=== PATIENT | female | born 1950 | race Caucasian/White ===

== ENCOUNTER 2017-11-10 18:52 | Emergency (ER) | payer MEDICARE, MEDICAID ==
[~2017-11-10] VITALS: Ht 172.7 cm; Wt 125.0 kg
[~2017-11-10 18:52] MED LIST: ALBU2TAB4 PO; ASPI-1071 PO; ATOR20TA PO; ATRNS; BUDE10.23 INH; FLUT10SP; HYDR-569 PO; HYDR12.522 PO; LEVA15HF4 IH; MELO-83 PO; MONT10TA21 PO; NIA500ERT PO; OMEG1CAP13 PO; ONDA4TAB12 PO; OXYC-145 PO; THEO300T11 PO; TRAM50TA2 PO
[2017-11-10 19:22] LABS: BASOPHILS # (AUTO) 0.1 X10'3 (0-0.2); BASOPHILS % (AUTO) 0.7 % (0-1); EOSINOPHILS # (AUTO) 0.4 X10'3 (0-0.9); HEMATOCRIT 42.9 % (35.0-45.0); HEMOGLOBIN 14.6 g/dl (12.0-16.0); LYMPHOCYTES # (AUTO) 3.9 X10'3 (1.1-4.8); LYMPHOCYTES % (AUTO) 20.5 % (21-51); MEAN CORPUSCULAR HEMOGLOBIN 29.5 PG (27.0-31.0); MEAN CORPUSCULAR HGB CONC 34.1 % (33.0-36.5); MEAN CORPUSCULAR VOLUME 86.4 FL (78-98); MEAN PLATELET VOLUME 7.6 FL (7.4-10.4); MONOCYTES % (AUTO) 10.4 % (2-12); NEUTROPHILS # (AUTO) 12.6 X10'3 (1.8-7.7); NEUTROPHILS % (AUTO) 66.4 % (42-75); PLATELET COUNT 313 X10'3 (140-440); RED BLOOD COUNT 4.97 X10'6 (4.20-5.60); RED CELL DISTRIBUTION WIDTH 14.4 % (11.5-14.5)
[2017-11-10 19:28] LABS: PARTIAL THROMBOPLASTIN TIME 29 SECONDS (22-32); PROTHROMBIN TIME 10.4 SECONDS (9.0-12.0)
[2017-11-10 19:36] LABS: ALANINE AMINOTRANSFERASE 25 U/L (12-78); ALBUMIN 3.4 G/DL (3.4-5.0); ALBUMIN/GLOBULIN RATIO 0.6 (1.1-1.5); ALKALINE PHOSPHATASE 77 IU/L (46-116); ANION GAP 11 (8-16); ASPARTATE AMINO TRANSFERASE 11 U/L (10-37); BILIRUBIN,TOTAL 0.9 MG/DL (0.1-1.0); BLOOD UREA NITROGEN 14 MG/DL (7-18); BUN/CREATININE RATIO 12.7 (6.6-38.0); CALCIUM 9.7 MG/DL (8.5-10.1); CHLORIDE 101 MMOL/L (99-107); GLUCOSE 150 MG/DL (70-104); POTASSIUM 3.7 MMOL/L (3.5-5.1); SODIUM 136 MMOL/L (135-145); TOTAL CARBON DIOXIDE 24.3 MMOL/L (24-32); TOTAL PROTEIN 8.7 G/DL (6.4-8.2); eGFR 50 ML/MIN
[2017-11-10] MEDS ORDERED: normal saline 1000ML IV soln IV ONE (19:55)
[2017-11-10] MEDS ORDERED: normal saline 1000ML IV soln IVB ONE (20:30)
[2017-11-10] MEDS ORDERED: normal saline 1000ml 1,000 ML IV ONE (21:15)
[2017-11-10 21:56] LABS: CLARITY,URINE SLIGHTLY CLOUDY (Clear); GLUCOSE, URINE NEGATIVE (Neg); KETONES,URINE 40 mg/dl (Neg); LEUKOCYTE ESTERASE ,URINE NEGATIVE (Neg); NITRITES, URINE POSITIVE (Neg); OCCULT BLOOD,URINE NEGATIVE (Neg); PH,URINE 5.5 (4.8-8.0); PROTEIN,URINE 30 mg/dl (Neg)
[2017-11-10 21:59] LABS: COLOR,URINE DARK YELLOW (Yellow); UA COLLECTION TYPE CLN CATCH MIDSTREAM
[2017-11-10] MEDS ORDERED: iohexol 350MG/ML 100ml bottle IV ONE (22:11)
[2017-11-10 22:13] LABS: WBC,URINE 0-4 /HPF (0-4)
[2017-11-10 22:14] LABS: BACTERIA,URINE 1+ /HPF (Neg); RBC,URINE 0-2 /HPF (0-2)
[2017-11-10 22:15] LABS: CAL OXALATE CRYSTALS 3+ /HPF (NEGATIVE); SQUAMOUS EPITHELIAL CELL,UR MANY /LPF (FEW)
[2017-11-10] MEDS ORDERED: LEVO250T2 PO (23:35)
[2017-11-11] VITALS: BP 163/86
== END 2017-11-11 | disposition home or self-care (01) ==
LOC: ER 18:52
DX: J18.9 Pneumonia, unspecified organism (principal); J44.9 Chronic obstructive pulmonary disease, unspecified; M19.90 Unspecified osteoarthritis, unspecified site; Z90.710 Acquired absence of both cervix and uterus; Z60.2 Problems related to living alone; Z88.1 Allergy status to other antibiotic agents; Z88.6 Allergy status to analgesic agent; Z79.82 Long term (current) use of aspirin; Z79.899 Other long term (current) drug therapy
CPT/HCPCS: 36415; 71045; 71275; 80053; 81001; 83605; 83735; 83880; 84145; 84484; 85025; 85610; 85730; 87040; 87502; 87503; 93005; 96360; 96361; 99285; J7030; Q9967

== ENCOUNTER 2019-02-08 05:34 | Day surgery (SDC) | payer MEDICARE, MEDICAID ==
[2019-02-04 10:52] LABS: BASOPHILS # (AUTO) 0.1 X10'3 (0-0.2); BASOPHILS % (AUTO) 1.1 % (0-1); EOSINOPHILS # (AUTO) 0.9 X10'3 (0-0.9); EOSINOPHILS % (AUTO) 8.9 % (0-6); LYMPHOCYTES % (AUTO) 29.9 % (21-51); MEAN CORPUSCULAR HEMOGLOBIN 29.5 PG (27.0-31.0); MEAN CORPUSCULAR HGB CONC 33.9 g/dL (33.0-36.5); MEAN CORPUSCULAR VOLUME 86.9 FL (78-98); MONOCYTES # (AUTO) 1.1 X10'3 (0-0.9); NEUTROPHILS % (AUTO) 49.1 % (42-75); PRE OP HEMATOCRIT 41.8 % (35.0-45.0); PRE OP HEMOGLOBIN 14.2 g/dL (12.0-16.0); PRE OP PLATELET COUNT 316 X10'3 (140-440); RED BLOOD COUNT 4.81 X10'6 (4.20-5.60); RED CELL DISTRIBUTION WIDTH 14.4 % (11.5-14.5)
[2019-02-04 11:00] LABS: CLARITY,URINE SLIGHTLY CLOUDY (Clear); COLOR,URINE YELLOW (Yellow); GLUCOSE, URINE NEGATIVE (Neg); KETONES,URINE TRACE mg/dl (Neg); LEUKOCYTE ESTERASE ,URINE NEGATIVE (Neg); NITRITES, URINE NEGATIVE (Neg); OCCULT BLOOD,URINE TRACE-INTACT (Neg); PH,URINE 6.5 (4.8-8.0); PROTEIN,URINE NEGATIVE (Neg)
[2019-02-04 11:10] LABS: UA COLLECTION TYPE NON-SPECIFIED
[2019-02-04 11:14] LABS: BACTERIA,URINE 1+ /HPF (Neg); SQUAMOUS EPITHELIAL CELL,UR MODERATE /LPF (FEW); WBC,URINE 0-4 /HPF (0-4)
[2019-02-04 11:15] LABS: MUCUS STRANDS FEW /LPF (Neg)
[2019-02-04 11:16] LABS: ALBUMIN 3.5 G/DL (3.4-5.0); ALBUMIN/GLOBULIN RATIO 0.9 (1.1-1.5); ALKALINE PHOSPHATASE 84 IU/L (46-116); BLOOD UREA NITROGEN 12 MG/DL (7-18); BUN/CREATININE RATIO 13.2 (6.6-38.0); CALCIUM 9.8 MG/DL (8.5-10.1); CHLORIDE 101 MMOL/L (99-107); CREATININE 0.91 MG/DL (0.40-0.90); PRE OP ANION GAP 9 (8-16); PRE OP AST 102 U/L (10-37); PRE OP BILIRUB, TOTAL 0.5 MG/DL (0.0-1.0); PRE OP POTASSIUM 4.1 MMOL/L (3.4-5.1); PRE OP SODIUM 138 MMOL/L (135-145); TOTAL PROTEIN 7.5 G/DL (6.4-8.2); eGFR 62 ML/MIN
[2019-02-04 11:23] LABS: PRE OP GLUCOSE 245 MG/DL (70-104)
[2019-02-04 12:20] LABS: PRE OP ALT 131 U/L (30-65)
[~2019-02-08] VITALS: Ht 172.7 cm; Wt 129.3 kg
[2019-02-08] VITALS (17 sets, daily range): BP systolic 126–167; BP diastolic 58–100
[~2019-02-08 05:34] MED LIST changes: +ALBU18HF2 INH; -ALBU2TAB4 PO; -ATOR20TA PO; -ATRNS; -FLUT10SP; +FLUT16SP2 NS; -HYDR-569 PO; -HYDR12.522 PO; -LEVA15HF4 IH; +LORA10TA65 PO; -MELO-83 PO; +METF500T PO; -MONT10TA21 PO; -NIA500ERT PO; -OMEG1CAP13 PO; -ONDA4TAB12 PO; -OXYC-145 PO; -THEO300T11 PO; -TRAM50TA2 PO; +UMEC62.5 IH; +ceFAZolin inj. 3,000 MG in normal saline 100ml IV soln 100 ML IV ONE; +famotidine 20mg tablet PO ONE; +ringers solution, lacted 1,000 ML IV SCH
[2019-02-08] MEDS ORDERED: ringers solution, lacted 1,000 ML IV SCH (08:19)
[2019-02-08] MEDS ORDERED: hydrALAZINE 20mg/ml inj. IV PRN (08:20)
[2019-02-08] MEDS ORDERED: ondansetron/PF 4mg/2ml inj IV PRN (08:20)
[2019-02-08] MEDS ORDERED: labetalol 20mg/4ml (5mg/ml) syringe IV PRN (08:20)
[2019-02-08] MEDS ORDERED: meperidine/PF 25mg/ml syringe IV PRN (08:20)
[2019-02-08] MEDS ORDERED: fentaNYL/PF 50MCG/1 ML 2ML syringe IV PRN ×2 (08:20)
[2019-02-08] MEDS ORDERED: sevoflurane 250ml liquid IH ONE (08:28)
[2019-02-08] MEDS ORDERED: fentaNYL/PF 50MCG/1 ML 2ML syringe ONE ×2 (08:30→10:02)
[2019-02-08] MEDS ORDERED: midazolam 2 mg/2 ml injection ONE (08:31)
[2019-02-08] MEDS ORDERED: propofol inj 20 ML IV ONE (08:42)
[2019-02-08] MEDS ORDERED: rocuronium 10mg/ml inj IV ONE (08:42)
[2019-02-08] MEDS ORDERED: LIDOcaine 1%/PF 5ML 10 MG/ML VIAL ONE (08:42)
[2019-02-08] MEDS ORDERED: ondansetron/PF 4mg/2ml inj ONE (08:43)
[2019-02-08] MEDS ORDERED: dexamethasone sod phosphate 4mg/ml inj. ONE (08:43)
[2019-02-08] MEDS ORDERED: labetalol 20mg/4ml (5mg/ml) syringe IV ONE (08:57)
[2019-02-08] MEDS ORDERED: glycopyrrolate 0.2mg/ml inj ONE (09:20)
[2019-02-08] MEDS ORDERED: neostigmine methylsulfate 1 MG/ML 10ml vial ONE (09:20)
--- NOTE | 2019-02-08 09:31 | NUR ---
Received from OR via HIRAL, accompanied by Anesthesiologist DR NATHAN and report given by Anesthesiologist. PT DROWSY, DENIES PAIN, 3 LAP SITES W/BANDAIDS CDI. Addendum: 02/08/19 at 0948 by Nimisha Stahl RN Amended: Links added.
[2019-02-08] MEDS: meperidine/PF 25mg/ml syringe IV PRN ×2 (10:32→10:57)
== END 2019-02-08 12:31 | disposition home or self-care (01) ==
LOC: PAS 05:34
PROVIDERS: ATTEND Surgery
DX: K80.18 Calculus of gallbladder with other cholecystitis without obstruction (principal); J44.9 Chronic obstructive pulmonary disease, unspecified; E11.9 Type 2 diabetes mellitus without complications; M19.90 Unspecified osteoarthritis, unspecified site; Z88.8 Allergy status to other drugs, medicaments and biological substances; Z88.6 Allergy status to analgesic agent; Z90.710 Acquired absence of both cervix and uterus; Z86.19 Personal history of other infectious and parasitic diseases
CPT/HCPCS: 36415; 47562; 71046; 80053; 81001; 82948; 85025; 93005; J0690; J1100; J2001; J2175; J2250; J2405; J2704; J2710; J3010; J7120; 88304; A7000; J3490; J7030

== ENCOUNTER 2019-04-14 01:48 | Outpatient (CLI) | payer MEDICARE, MEDICAID ==
[~2019-04-14 01:48] MED LIST changes: -ceFAZolin inj. 3,000 MG in normal saline 100ml IV soln 100 ML IV ONE; -famotidine 20mg tablet PO ONE; -ringers solution, lacted 1,000 ML IV SCH
== END 2019-04-14 23:59 | disposition home or self-care (01) ==
LOC: DIABETIC 01:48
PROVIDERS: ATTEND Family Medicine
DX: E11.9 Type 2 diabetes mellitus without complications (principal); E66.01 Morbid (severe) obesity due to excess calories; Z68.41 Body mass index [BMI] 40.0-44.9, adult; Z71.3 Dietary counseling and surveillance
CPT/HCPCS: G0108

== ENCOUNTER 2019-05-26 01:35 | Outpatient (CLI) | payer MEDICARE, MEDICAID | END 2019-05-26 23:59 | disposition home or self-care (01) | LOC: DIABETIC 01:35 | PROVIDERS: ATTEND Family Medicine | DX: E11.9 Type 2 diabetes mellitus without complications (principal) | CPT/HCPCS: G0108 ==

== ENCOUNTER 2019-06-17 10:12 | Emergency (ER) | payer MEDICARE, MEDICAID ==
[~2019-06-17] VITALS: Ht 172.7 cm; Wt 125.3 kg
[2019-06-17 10:17] VITALS: BP 164/77
== END 2019-06-17 11:32 | disposition home or self-care (01) ==
LOC: ER 10:13
DX: S50.861A Insect bite (nonvenomous) of right forearm, initial encounter (principal); E66.9 Obesity, unspecified; J44.9 Chronic obstructive pulmonary disease, unspecified; M19.90 Unspecified osteoarthritis, unspecified site; Z90.710 Acquired absence of both cervix and uterus; Z88.1 Allergy status to other antibiotic agents; Z88.6 Allergy status to analgesic agent; Z88.5 Allergy status to narcotic agent; Z79.82 Long term (current) use of aspirin; Z79.899 Other long term (current) drug therapy; W57.XXXA Bitten or stung by nonvenomous insect and other nonvenomous arthropods, initial encounter; Y93.89 Activity, other specified; Y92.89 Other specified places as the place of occurrence of the external cause; Y99.9 Unspecified external cause status
CPT/HCPCS: 99281

== ENCOUNTER 2020-03-13 10:19 | Emergency (ER) | payer MEDICARE, MEDICAID ==
[~2020-03-13] VITALS: Ht 172.7 cm; Wt 120.0 kg
[2020-03-13 10:26] VITALS: BP 179/93
== END 2020-03-13 13:28 | disposition home or self-care (01) ==
LOC: ER 10:21
DX: S92.351A Displaced fracture of fifth metatarsal bone, right foot, initial encounter for closed fracture (principal); J44.9 Chronic obstructive pulmonary disease, unspecified; M19.90 Unspecified osteoarthritis, unspecified site; F32.9 Major depressive disorder, single episode, unspecified; Z90.710 Acquired absence of both cervix and uterus; Z79.2 Long term (current) use of antibiotics; Z79.82 Long term (current) use of aspirin; Z79.899 Other long term (current) drug therapy; W01.0XXA Fall on same level from slipping, tripping and stumbling without subsequent striking against object, initial encounter; Y93.89 Activity, other specified; Y92.89 Other specified places as the place of occurrence of the external cause; Y99.8 Other external cause status
CPT/HCPCS: 73630; 99284

== ENCOUNTER 2020-07-01 10:21 | Emergency (ER) | payer MEDICARE, MEDICAID ==
[~2020-07-01] VITALS: Ht 172.7 cm; Wt 123.0 kg
[2020-07-01 10:29] VITALS: BP 154/88
[2020-07-01 11:00] LABS: BASOPHILS # (AUTO) 0.2 X10'3 (0-0.2); BASOPHILS % (AUTO) 1.8 % (0-1); EOSINOPHILS # (AUTO) 1.2 X10'3 (0-0.9); EOSINOPHILS % (AUTO) 12.1 % (0-6); HEMATOCRIT 45.3 % (35.0-45.0); HEMOGLOBIN 15.4 g/dl (12.0-16.0); LYMPHOCYTES # (AUTO) 3.4 X10'3 (1.1-4.8); MEAN CORPUSCULAR HEMOGLOBIN 29.6 PG (27.0-31.0); MEAN CORPUSCULAR HGB CONC 33.9 g/dL (33.0-36.5); MEAN CORPUSCULAR VOLUME 87.1 FL (78-98); MEAN PLATELET VOLUME 8.4 FL (7.4-10.4); MONOCYTES # (AUTO) 0.9 X10'3 (0-0.9); MONOCYTES % (AUTO) 8.8 % (2-12); NEUTROPHILS # (AUTO) 4.4 X10'3 (1.8-7.7); NEUTROPHILS % (AUTO) 43.3 % (42-75); PLATELET COUNT 311 X10'3 (140-440); RED BLOOD COUNT 5.21 X10'6 (4.20-5.60); RED CELL DISTRIBUTION WIDTH 14.1 % (11.5-14.5); WHITE BLOOD COUNT 10.1 X10'3 (4.5-11.0)
[2020-07-01 11:11] LABS: ALANINE AMINOTRANSFERASE 61 U/L (12-78); ALBUMIN 3.8 G/DL (3.4-5.0); ALBUMIN/GLOBULIN RATIO 0.8 (1.1-1.5); ALKALINE PHOSPHATASE 73 IU/L (46-116); ANION GAP 10 (8-16); ASPARTATE AMINO TRANSFERASE 37 U/L (10-37); BILIRUBIN,TOTAL 0.6 MG/DL (0.1-1.0); BLOOD UREA NITROGEN 14 MG/DL (7-18); BUN/CREATININE RATIO 14.7 (6.6-38.0); CALCIUM 9.6 MG/DL (8.5-10.1); CHLORIDE 102 MMOL/L (99-107); CREATININE 0.95 MG/DL (0.40-0.90); GLUCOSE 151 MG/DL (70-104); LIPASE 136 U/L (73-393); POTASSIUM 3.9 MMOL/L (3.5-5.1); SODIUM 138 MMOL/L (135-145); TOTAL CARBON DIOXIDE 26.5 MMOL/L (24-32); TOTAL PROTEIN 8.4 G/DL (6.4-8.2); eGFR 58 ML/MIN
[2020-07-01 12:03] LABS: CLARITY,URINE SLIGHTLY CLOUDY (Clear); COLOR,URINE YELLOW (Yellow); GLUCOSE, URINE NEGATIVE (Neg); KETONES,URINE NEGATIVE (Neg); LEUKOCYTE ESTERASE ,URINE NEGATIVE (Neg); NITRITES, URINE NEGATIVE (Neg); OCCULT BLOOD,URINE LARGE (Neg); PH,URINE 5.5 (4.8-8.0); PROTEIN,URINE NEGATIVE (Neg); UROBILINOGEN,URINE 0.2 E.U/dL (0.2-1.0)
[2020-07-01 12:08] LABS: UA COLLECTION TYPE CLN CATCH MIDSTREAM
[2020-07-01 12:09] LABS: BACTERIA,URINE FEW /HPF (Neg); FINE GRANULAR CAST 0-3 /LPF (NEGATIVE); MUCUS STRANDS NONE SEEN /LPF (Neg); RBC,URINE TNTC /HPF (0-2); SQUAMOUS EPITHELIAL CELL,UR MODERATE /LPF (FEW); WBC,URINE 0-4 /HPF (0-4)
== END 2020-07-01 12:45 | disposition home or self-care (01) ==
LOC: ER 10:22
DX: K43.9 Ventral hernia without obstruction or gangrene (principal); J44.9 Chronic obstructive pulmonary disease, unspecified; M19.90 Unspecified osteoarthritis, unspecified site; F32.9 Major depressive disorder, single episode, unspecified; Z90.49 Acquired absence of other specified parts of digestive tract; Z90.710 Acquired absence of both cervix and uterus; Z88.5 Allergy status to narcotic agent; Z88.8 Allergy status to other drugs, medicaments and biological substances; Z79.899 Other long term (current) drug therapy
CPT/HCPCS: 36415; 74176; 80053; 81001; 83690; 84484; 85025; 93005; 99285

== ENCOUNTER 2020-08-08 08:18 | Inpatient (IN) | payer MEDICARE, MEDICAID ==
[2020-08-02 14:47] LABS: BASOPHILS # (AUTO) 0.2 X10'3 (0-0.2); BASOPHILS % (AUTO) 1.5 % (0-1); EOSINOPHILS # (AUTO) 0.6 X10'3 (0-0.9); EOSINOPHILS % (AUTO) 4.1 % (0-6); LYMPHOCYTES # (AUTO) 5.1 X10'3 (1.1-4.8); LYMPHOCYTES % (AUTO) 37.4 % (21-51); MEAN CORPUSCULAR HEMOGLOBIN 29.2 PG (27.0-31.0); MEAN CORPUSCULAR HGB CONC 33.4 g/dL (33.0-36.5); MEAN CORPUSCULAR VOLUME 87.2 FL (78-98); MEAN PLATELET VOLUME 7.5 FL (7.4-10.4); MONOCYTES # (AUTO) 1.3 X10'3 (0-0.9); MONOCYTES % (AUTO) 9.7 % (2-12); NEUTROPHILS # (AUTO) 6.4 X10'3 (1.8-7.7); NEUTROPHILS % (AUTO) 47.3 % (42-75); PRE OP HEMATOCRIT 44.5 % (35.0-45.0); PRE OP HEMOGLOBIN 14.9 g/dL (12.0-16.0); PRE OP PLATELET COUNT 337 X10'3 (140-440)
[2020-08-02 14:57] LABS: ALBUMIN 3.6 G/DL (3.4-5.0); ALBUMIN/GLOBULIN RATIO 0.8 (1.1-1.5); ALKALINE PHOSPHATASE 81 IU/L (46-116); BLOOD UREA NITROGEN 14 MG/DL (7-18); BUN/CREATININE RATIO 15.9 (6.6-38.0); CALCIUM 9.6 MG/DL (8.5-10.1); CHLORIDE 101 MMOL/L (99-107); CREATININE 0.88 MG/DL (0.40-0.90); PRE OP ALT 56 U/L (30-65); PRE OP ANION GAP 9 (8-16); PRE OP AST 20 U/L (10-37); PRE OP BILIRUB, TOTAL 0.6 MG/DL (0.0-1.0); PRE OP GLUCOSE 111 MG/DL (70-104); PRE OP POTASSIUM 3.8 MMOL/L (3.4-5.1); PRE OP SODIUM 139 MMOL/L (135-145); TOTAL CARBON DIOXIDE 28.8 MMOL/L (24-32); eGFR 64 ML/MIN
[2020-08-08] VITALS (12 sets, daily range): BP systolic 134–176; BP diastolic 65–107
[~2020-08-08] VITALS: Ht 172.7 cm; Wt 124.8 kg
[~2020-08-08 08:18] MED LIST changes: +BUPIVAcaine/PF 2.5 mg/ml (0.25%) 30ml vial ONE; -LORA10TA65 PO; +PRED10TA PO; +ceFAZolin inj. 3,000 MG in normal saline 100ml IV soln 100 ML IV ONE; +famotidine 20mg tablet PO ONE
[2020-08-08] MEDS: ringers solution, lacted 1,000 ML IV SCH ×2 (09:05→22:17)
[2020-08-08] MEDS ORDERED: BUPIVAcaine/PF 2.5 mg/ml (0.25%) 30ml vial ONE (17:13)
[2020-08-08] MEDS ORDERED: propofol inj 20 ML IV ONE (17:20)
[2020-08-08] MEDS ORDERED: midazolam 2 mg/2 ml injection ONE (17:20)
[2020-08-08] MEDS ORDERED: fentaNYL /PF 50mcg/ml 5ml ampule ONE (17:20)
[2020-08-08] MEDS ORDERED: ondansetron/PF 4mg/2ml inj IV PRN ×2 (18:20→21:15)
[2020-08-08] MEDS ORDERED: meperidine/PF 25mg/ml syringe IV PRN ×3 (18:20)
[2020-08-08] MEDS ORDERED: HYDROmorphone/PF 0.2 MG/ML SYRINGE IV PRN ×2 (18:20)
[2020-08-08] MEDS ORDERED: ringers solution, lacted 1,000 ML IV SCH (18:20)
[2020-08-08] MEDS ORDERED: rocuronium 10mg/ml inj IV ONE ×2 (19:18)
[2020-08-08] MEDS ORDERED: fentaNYL/PF 50MCG/1 ML 2ML syringe ONE (19:18)
[2020-08-08] MEDS ORDERED: glycopyrrolate 0.2mg/ml inj ONE (20:28)
[2020-08-08] MEDS ORDERED: ondansetron/PF 4mg/2ml inj ONE (20:29)
[2020-08-08] MEDS ORDERED: neostigmine methylsulfate 1 MG/ML 10ml vial ONE (20:29)
--- NOTE | 2020-08-08 20:40 | NUR ---
Received from OR via BED , accompanied by Anesthesiologist DR BAE and report given by Anesthesiolgist. PATIENT WAKING UP, DENIES PAIN, V/S WNL, NEUROVASCULAR CHECKS INTACT, 20G PIV LUE, SCD ON, BANDAIDS TO LAP SIGHTS OF ABDOMEN CDI WITH ABD BINDER ON.
[2020-08-08] MEDS ORDERED: hydrALAZINE 20mg/ml inj. IV PRN (20:55)
--- NOTE | 2020-08-08 21:05 | NUR ---
PATIENT ADMITTED TO ROOM 357A FROM RECOVERY ROOM AFTER LAP ASSISTED ROBOTIC LYSIS OF ADHESION AND HERNIA REPAIR WAS DONE BY DR. ADAN. PLACED COMFORTABLE IN BED. VITAL SIGNS MONITORED.
[2020-08-08] MEDS ORDERED: HYDROcodone/acetaminophen 10/325mg tab PO PRN (21:15)
--- NOTE | 2020-08-08 21:30 | NUR ---
PATIENT A&OX4, DENIES PAIN, V/S WNL, NEUROVASCULAR CHECKS INTACT, 20G PIV LUE, SCD ON, BANDAIDS TO LAP SIGHTS OF ABDOMEN CDI WITH ABD BINDER ON. PATIENT TAKEN TO 357A WITH ALL BELONGINGS AND HOOKED UP TO MONITORS AND REPORT GIVEN TO human resource internship who has taken over patient care.
[2020-08-09] VITALS: BP 145/65
[2020-08-09 00:15] VITALS: BP 150/72
[2020-08-09 04:00] VITALS: BP 148/72
--- NOTE | 2020-08-09 06:30 | NUR ---
Problems reprioritized. Patient report given, questions answered & plan of care reviewed with BARRETT ROMAN.
--- NOTE | 2020-08-09 06:54 | NUR ---
Patient in room [facility]. I have received report from ABEL Hou and had the opportunity to ask questions and assume patient care.
[2020-08-09 07:00] VITALS: BP 121/69
--- NOTE | 2020-08-09 07:34 | NUR ---
Pt requesting home health care services. States she has 21 [facility] hours/week but has not found someone to fill the hours. Pt also requesting information regarding diet and lifestyle choices post cholecystectomy, even though she had ventral hernia repair with lysis of adhesions during her stay. Will add diet information to discharge paperwork and request foreign food specialty cook consult.
--- NOTE | 2020-08-09 11:00 | NUR ---
Pt discharged to home with all belongings, transported by [facility] transportation, set up by patient. Discharge instructions and medications reviewed, education regarding low fat diet and lifestyle changes (s/p cholecystectomy) provided to patient, as requested. Pt instructed to follow up with Dr Bundy in 2 weeks, phone number provided. Pt also instructed to watch for signs/symptoms of infection, and to notify Dr Bundy office if any noted. IV DC'd, cannula intact. Pt escorted to front lobby via wheelchair by PCT.
== END 2020-08-09 10:57 | disposition home or self-care (01) | DRG 337 ==
LOC: PAS 08:18 → SUR 3N 21:13 → OBSVTOIN 08-09 08:45
PROVIDERS: ADMIT Surgery; ATTEND Surgery
PROC: 0DNW4ZZ Release Peritoneum, Percutaneous Endoscopic Approach (ICD-10-PCS; 2020-08-08)
PROC: 8E0W4CZ Robotic Assisted Procedure of Trunk Region, Percutaneous Endoscopic Approach (ICD-10-PCS; 2020-08-08)
PROC: 0WQF4ZZ Repair Abdominal Wall, Percutaneous Endoscopic Approach (ICD-10-PCS; principal; 2020-08-08 17:23)
DX: K43.9 Ventral hernia without obstruction or gangrene (principal); J44.9 Chronic obstructive pulmonary disease, unspecified; K66.0 Peritoneal adhesions (postprocedural) (postinfection); Z90.710 Acquired absence of both cervix and uterus; Z20.828 Contact with and (suspected) exposure to other viral communicable diseases
CPT/HCPCS: 36415; 80053; 82948; 85025; 87081; 87635; A4215; A4618; C1758; C1781; G0378; J0360; J0690; J2250; J2405; J2704; J2710; J3010; J3490; J7120

== ENCOUNTER 2021-01-05 12:14 | Emergency (ER) | payer MEDICARE, MEDICAID ==
[~2021-01-05] VITALS: Ht 172.7 cm; Wt 123.9 kg
[~2021-01-05 12:14] MED LIST changes: -BUPIVAcaine/PF 2.5 mg/ml (0.25%) 30ml vial ONE; -ceFAZolin inj. 3,000 MG in normal saline 100ml IV soln 100 ML IV ONE; -famotidine 20mg tablet PO ONE
[2021-01-05 15:04] LABS: BASOPHILS # (AUTO) 0.1 X10'3 (0-0.2); EOSINOPHILS # (AUTO) 1.3 X10'3 (0-0.9); EOSINOPHILS % (AUTO) 13.7 % (0-6); HEMATOCRIT 41.4 % (35.0-45.0); HEMOGLOBIN 13.7 g/dl (12.0-16.0); LYMPHOCYTES # (AUTO) 3.2 X10'3 (1.1-4.8); LYMPHOCYTES % (AUTO) 32.9 % (21-51); MEAN CORPUSCULAR HEMOGLOBIN 29.2 PG (27.0-31.0); MEAN CORPUSCULAR VOLUME 88.7 FL (78-98); MONOCYTES # (AUTO) 0.9 X10'3 (0-0.9); MONOCYTES % (AUTO) 8.8 % (2-12); NEUTROPHILS # (AUTO) 4.3 X10'3 (1.8-7.7); NEUTROPHILS % (AUTO) 43.6 % (42-75); PLATELET COUNT 315 X10'3 (140-440); RED BLOOD COUNT 4.67 X10'6 (4.20-5.60); RED CELL DISTRIBUTION WIDTH 13.8 % (11.5-14.5); WHITE BLOOD COUNT 9.8 X10'3 (4.5-11.0)
[2021-01-05 15:17] LABS: ALANINE AMINOTRANSFERASE 99 U/L (12-78); ALBUMIN 3.5 G/DL (3.4-5.0); ALBUMIN/GLOBULIN RATIO 0.8 (1.1-1.5); ALKALINE PHOSPHATASE 74 IU/L (46-116); ANION GAP 12 (8-16); ASPARTATE AMINO TRANSFERASE 81 U/L (10-37); BILIRUBIN,TOTAL 0.5 MG/DL (0.1-1.0); BLOOD UREA NITROGEN 8 MG/DL (7-18); BUN/CREATININE RATIO 10.7 (6.6-38.0); CALCIUM 8.8 MG/DL (8.5-10.1); CHLORIDE 102 MMOL/L (99-107); CREATININE 0.75 MG/DL (0.40-0.90); GLUCOSE 137 MG/DL (70-104); SODIUM 141 MMOL/L (135-145); TOTAL CARBON DIOXIDE 26.6 MMOL/L (24-32); TOTAL PROTEIN 7.7 G/DL (6.4-8.2); eGFR 77 ML/MIN
[2021-01-05 15:49] VITALS: BP 165/81
== END 2021-01-05 15:51 | disposition home or self-care (01) ==
LOC: ER 12:15
DX: R60.0 Localized edema (principal); R07.89 Other chest pain; R06.02 Shortness of breath; R10.84 Generalized abdominal pain; J44.9 Chronic obstructive pulmonary disease, unspecified; E11.9 Type 2 diabetes mellitus without complications; M19.90 Unspecified osteoarthritis, unspecified site; F32.9 Major depressive disorder, single episode, unspecified; Z90.49 Acquired absence of other specified parts of digestive tract; Z90.710 Acquired absence of both cervix and uterus; Z60.2 Problems related to living alone; Z88.1 Allergy status to other antibiotic agents; Z88.5 Allergy status to narcotic agent; Z88.6 Allergy status to analgesic agent; Z79.82 Long term (current) use of aspirin; Z79.899 Other long term (current) drug therapy
CPT/HCPCS: 36415; 71045; 74176; 80053; 83880; 84484; 85025; 93005; 99285

== ENCOUNTER 2021-04-13 18:31 | Emergency (ER) | payer MEDICARE, MEDICAID ==
[~2021-04-13] VITALS: Ht 172.7 cm; Wt 121.0 kg
[2021-04-13 19:36] VITALS: BP 155/105
== END 2021-04-13 22:21 | disposition home or self-care (01) ==
LOC: ER 18:31
DX: T18.9XXA Foreign body of alimentary tract, part unspecified, initial encounter (principal); R07.89 Other chest pain; J44.9 Chronic obstructive pulmonary disease, unspecified; E11.9 Type 2 diabetes mellitus without complications; M19.90 Unspecified osteoarthritis, unspecified site; Z90.49 Acquired absence of other specified parts of digestive tract; Z90.710 Acquired absence of both cervix and uterus; Z79.82 Long term (current) use of aspirin; Z79.899 Other long term (current) drug therapy; X58.XXXA Exposure to other specified factors, initial encounter; Y93.89 Activity, other specified; Y92.89 Other specified places as the place of occurrence of the external cause; Y99.8 Other external cause status
CPT/HCPCS: 71045; 99283

== ENCOUNTER 2021-06-03 10:57 | Emergency (ER) | payer MEDICARE, MEDICAID ==
[~2021-06-03] VITALS: Ht 175.3 cm; Wt 121.8 kg
[2021-06-03] MEDS ORDERED: ketorolac tromethamine 15mg/ml inj. IM ONE (12:05)
[2021-06-03] MEDS ORDERED: HYDR-3965 PO (14:41)
[2021-06-03 15:25] VITALS: BP 122/92
--- NOTE | 2021-06-03 15:25 | NUR ---
Pt given and understands d/c instructions.
== END 2021-06-03 16:30 | disposition home or self-care (01) ==
LOC: ER 10:57
DX: S82.454A Nondisplaced comminuted fracture of shaft of right fibula, initial encounter for closed fracture (principal); S82.54XA Nondisplaced fracture of medial malleolus of right tibia, initial encounter for closed fracture; J44.9 Chronic obstructive pulmonary disease, unspecified; E11.9 Type 2 diabetes mellitus without complications; M19.90 Unspecified osteoarthritis, unspecified site; Z98.890 Other specified postprocedural states; Z90.710 Acquired absence of both cervix and uterus; Z90.49 Acquired absence of other specified parts of digestive tract; Z88.1 Allergy status to other antibiotic agents; Z88.5 Allergy status to narcotic agent; Z88.8 Allergy status to other drugs, medicaments and biological substances; Z79.82 Long term (current) use of aspirin; Z79.899 Other long term (current) drug therapy; W01.0XXA Fall on same level from slipping, tripping and stumbling without subsequent striking against object, initial encounter; Y93.01 Activity, walking, marching and hiking; Y92.009 Unspecified place in unspecified non-institutional (private) residence as the place of occurrence of the external cause; Y99.8 Other external cause status
CPT/HCPCS: 29515; 73560; 73610; 96372; 99284; J1885

== ENCOUNTER 2021-12-11 18:38 | Emergency (ER) | payer MEDICARE, MEDICAID ==
[~2021-12-11] VITALS: Ht 172.7 cm; Wt 118.2 kg
[2021-12-11 19:02] LABS: BASOPHILS # (AUTO) 0.1 X10'3 (0-0.2); EOSINOPHILS # (AUTO) 0.8 X10'3 (0-0.9); EOSINOPHILS % (AUTO) 8.3 % (0-6); HEMATOCRIT 38.3 % (35.0-45.0); HEMOGLOBIN 12.8 g/dl (12.0-16.0); LYMPHOCYTES # (AUTO) 4.1 X10'3 (1.1-4.8); LYMPHOCYTES % (AUTO) 42.2 % (21-51); MEAN CORPUSCULAR HEMOGLOBIN 29.8 PG (27.0-31.0); MEAN CORPUSCULAR HGB CONC 33.5 g/dL (33.0-36.5); MEAN CORPUSCULAR VOLUME 88.9 FL (78-98); MEAN PLATELET VOLUME 7.4 FL (7.4-10.4); MONOCYTES # (AUTO) 1.1 X10'3 (0-0.9); MONOCYTES % (AUTO) 11.4 % (2-12); NEUTROPHILS # (AUTO) 3.6 X10'3 (1.8-7.7); NEUTROPHILS % (AUTO) 37.1 % (42-75); PLATELET COUNT 337 X10'3 (140-440); RED BLOOD COUNT 4.31 X10'6 (4.20-5.60); RED CELL DISTRIBUTION WIDTH 15.2 % (11.5-14.5); WHITE BLOOD COUNT 9.8 X10'3 (4.5-11.0)
[2021-12-11 19:14] LABS: ALANINE AMINOTRANSFERASE 84 U/L (12-78); ALBUMIN 3.3 G/DL (3.4-5.0); ALBUMIN/GLOBULIN RATIO 0.8 (1.1-1.5); ALKALINE PHOSPHATASE 64 IU/L (46-116); ANION GAP 12 (8-16); ASPARTATE AMINO TRANSFERASE 72 U/L (10-37); BILIRUBIN,TOTAL 0.6 MG/DL (0.1-1.0); BLOOD UREA NITROGEN 12 MG/DL (7-18); CALCIUM 7.9 MG/DL (8.5-10.1); CHLORIDE 107 MMOL/L (99-107); GLUCOSE 130 MG/DL (70-104); POTASSIUM 3.7 MMOL/L (3.5-5.1); SODIUM 143 MMOL/L (135-145); TOTAL CARBON DIOXIDE 24.5 MMOL/L (24-32); TOTAL PROTEIN 7.3 G/DL (6.4-8.2); eGFR 71 ML/MIN
[2021-12-11] MEDS ORDERED: nitroGLYCERIN 0.4mg SUBLingual tab SL PRN (21:35)
[2021-12-11 22:17] VITALS: BP 141/89
== END 2021-12-11 22:42 | disposition home or self-care (01) ==
LOC: ER 18:39
DX: R07.89 Other chest pain (principal); R06.02 Shortness of breath; J44.9 Chronic obstructive pulmonary disease, unspecified; E11.9 Type 2 diabetes mellitus without complications; M19.90 Unspecified osteoarthritis, unspecified site; F32.A Depression, unspecified; Z90.49 Acquired absence of other specified parts of digestive tract; Z90.710 Acquired absence of both cervix and uterus; Z60.2 Problems related to living alone; Z88.1 Allergy status to other antibiotic agents; Z88.5 Allergy status to narcotic agent; Z88.6 Allergy status to analgesic agent; Z79.82 Long term (current) use of aspirin; Z79.899 Other long term (current) drug therapy
CPT/HCPCS: 36415; 71045; 80053; 83880; 84484; 85025; 93005; 99285

== ENCOUNTER 2022-06-04 12:36 | Emergency (ER) | payer MEDICARE, MEDICAID ==
[~2022-06-04] VITALS: Ht 172.7 cm; Wt 117.7 kg
[2022-06-04 13:35] LABS: BASOPHILS % (AUTO) 0.3 % (0-1); EOSINOPHILS % (AUTO) 0 % (0-6); HEMATOCRIT 41.1 % (35.0-45.0); HEMOGLOBIN 13.9 g/dl (12.0-16.0); LYMPHOCYTES # (AUTO) 3.7 X10'3 (1.1-4.8); LYMPHOCYTES % (AUTO) 53.7 % (21-51); MEAN CORPUSCULAR HEMOGLOBIN 28.8 PG (27.0-31.0); MEAN CORPUSCULAR HGB CONC 33.8 g/dL (33.0-36.5); MEAN CORPUSCULAR VOLUME 85.3 FL (78-98); MEAN PLATELET VOLUME 7.8 FL (7.4-10.4); MONOCYTES # (AUTO) 0.8 X10'3 (0-0.9); MONOCYTES % (AUTO) 11.6 % (2-12); NEUTROPHILS # (AUTO) 2.4 X10'3 (1.8-7.7); NEUTROPHILS % (AUTO) 34.4 % (42-75); PLATELET COUNT 304 X10'3 (140-440); RED BLOOD COUNT 4.82 X10'6 (4.20-5.60); RED CELL DISTRIBUTION WIDTH 14.8 % (11.5-14.5)
[2022-06-04 13:53] LABS: ALANINE AMINOTRANSFERASE 111 U/L (12-78); ALBUMIN 3.6 G/DL (3.4-5.0); ALBUMIN/GLOBULIN RATIO 0.9 (1.1-1.5); ALKALINE PHOSPHATASE 77 IU/L (46-116); ANION GAP 10 (8-16); ASPARTATE AMINO TRANSFERASE 88 U/L (10-37); BILIRUBIN,TOTAL 0.8 MG/DL (0.1-1.0); BLOOD UREA NITROGEN 10 MG/DL (7-18); BUN/CREATININE RATIO 12.5 (6.6-38.0); CALCIUM 9.2 MG/DL (8.5-10.1); CHLORIDE 102 MMOL/L (99-107); GLUCOSE 222 MG/DL (70-104); LIPASE 127 U/L (73-393); POTASSIUM 3.9 MMOL/L (3.5-5.1); SODIUM 138 MMOL/L (135-145); TOTAL CARBON DIOXIDE 26.3 MMOL/L (24-32); TOTAL PROTEIN 7.8 G/DL (6.4-8.2); eGFR 71 ML/MIN
[2022-06-04 13:57] VITALS: BP 147/86
[2022-06-04 14:02] LABS: CLARITY,URINE CLOUDY (Clear); COLOR,URINE YELLOW (Yellow); GLUCOSE, URINE NEGATIVE (Neg); KETONES,URINE NEGATIVE (Neg); LEUKOCYTE ESTERASE ,URINE NEGATIVE (Neg); NITRITES, URINE NEGATIVE (Neg); OCCULT BLOOD,URINE NEGATIVE (Neg); PH,URINE 5.5 (4.8-8.0); PROTEIN,URINE NEGATIVE (Neg); UROBILINOGEN,URINE 0.2 E.U/dL (0.2-1.0)
[2022-06-04 14:27] LABS: UA COLLECTION TYPE CLN CATCH MIDSTREAM
[2022-06-04 14:28] LABS: BACTERIA,URINE 1+ /HPF (Neg); HYALINE CASTS 0-3 /LPF (NEGATIVE); MUCUS STRANDS FEW /LPF (Neg); SQUAMOUS EPITHELIAL CELL,UR MANY /LPF (FEW)
[2022-06-04 14:29] LABS: RBC,URINE 0-2 /HPF (0-2); WBC,URINE 0-4 /HPF (0-4)
== END 2022-06-04 15:56 | disposition home or self-care (01) ==
LOC: ER 12:37
DX: R10.31 Right lower quadrant pain (principal); J44.9 Chronic obstructive pulmonary disease, unspecified; E11.9 Type 2 diabetes mellitus without complications; M19.90 Unspecified osteoarthritis, unspecified site; Z88.5 Allergy status to narcotic agent; Z88.6 Allergy status to analgesic agent; Z91.041 Radiographic dye allergy status; Z90.49 Acquired absence of other specified parts of digestive tract; Z90.710 Acquired absence of both cervix and uterus
CPT/HCPCS: 36415; 74176; 80053; 81001; 83690; 85025; 99284

== ENCOUNTER 2022-06-16 11:01 | Emergency (ER) | payer MEDICARE, MEDICAID ==
[~2022-06-16] VITALS: Ht 172.7 cm; Wt 117.7 kg
[2022-06-16 12:18] LABS: BASOPHILS % (AUTO) 0.2 % (0-1); EOSINOPHILS % (AUTO) 0 % (0-6); HEMATOCRIT 40.3 % (35.0-45.0); HEMOGLOBIN 13.4 g/dl (12.0-16.0); LYMPHOCYTES # (AUTO) 2.8 X10'3 (1.1-4.8); LYMPHOCYTES % (AUTO) 45.5 % (21-51); MEAN CORPUSCULAR HEMOGLOBIN 28.6 PG (27.0-31.0); MEAN CORPUSCULAR HGB CONC 33.3 g/dL (33.0-36.5); MEAN CORPUSCULAR VOLUME 85.7 FL (78-98); MEAN PLATELET VOLUME 7.8 FL (7.4-10.4); MONOCYTES # (AUTO) 0.8 X10'3 (0-0.9); MONOCYTES % (AUTO) 12.8 % (2-12); NEUTROPHILS # (AUTO) 2.6 X10'3 (1.8-7.7); NEUTROPHILS % (AUTO) 41.5 % (42-75); PLATELET COUNT 290 X10'3 (140-440); RED CELL DISTRIBUTION WIDTH 14.9 % (11.5-14.5); WHITE BLOOD COUNT 6.2 X10'3 (4.5-11.0)
[2022-06-16 12:33] LABS: ALANINE AMINOTRANSFERASE 83 U/L (12-78); ALBUMIN 3.1 G/DL (3.4-5.0); ALBUMIN/GLOBULIN RATIO 0.8 (1.1-1.5); ALKALINE PHOSPHATASE 70 IU/L (46-116); ANION GAP 8 (8-16); ASPARTATE AMINO TRANSFERASE 51 U/L (10-37); BILIRUBIN,TOTAL 0.5 MG/DL (0.1-1.0); BLOOD UREA NITROGEN 12 MG/DL (7-18); BUN/CREATININE RATIO 15.4 (6.6-38.0); CALCIUM 8.6 MG/DL (8.5-10.1); CHLORIDE 104 MMOL/L (99-107); CREATININE 0.78 MG/DL (0.40-0.90); GLUCOSE 188 MG/DL (70-104); POTASSIUM 3.6 MMOL/L (3.5-5.1); SODIUM 137 MMOL/L (135-145); TOTAL CARBON DIOXIDE 25.1 MMOL/L (24-32); TOTAL PROTEIN 6.9 G/DL (6.4-8.2); eGFR 73 ML/MIN
[2022-06-16] MEDS ORDERED: ondansetron 4mg rapidly disintigrating tab PO ONE (12:40)
[2022-06-16] MEDS ORDERED: HYDROcodone/acetaminophen 5mg/325mg tablet PO ONE (12:40)
[2022-06-16] MEDS ORDERED: FAMO40TA58 PO (13:21)
[2022-06-16] MEDS ORDERED: HYDR-3965 PO (13:33)
[2022-06-16 13:35] VITALS: BP 133/76
== END 2022-06-16 13:37 | disposition home or self-care (01) ==
LOC: ER 11:02
DX: R07.89 Other chest pain (principal); R51.9 Headache, unspecified; E11.9 Type 2 diabetes mellitus without complications; J44.9 Chronic obstructive pulmonary disease, unspecified; M19.90 Unspecified osteoarthritis, unspecified site; F32.A Depression, unspecified; Z90.49 Acquired absence of other specified parts of digestive tract; Z90.710 Acquired absence of both cervix and uterus; Z98.890 Other specified postprocedural states; Z60.2 Problems related to living alone; Z88.1 Allergy status to other antibiotic agents; Z88.6 Allergy status to analgesic agent; Z88.5 Allergy status to narcotic agent; Z79.82 Long term (current) use of aspirin; Z79.899 Other long term (current) drug therapy
CPT/HCPCS: 36415; 71045; 80053; 83880; 84484; 85025; 93005; 99285

== ENCOUNTER 2022-07-03 09:13 | Outpatient (CLI) | payer MEDICARE, MEDICAID ==
[~2022-07-03 09:13] MED LIST changes: +FAMO40TA58 PO; +HYDR-3965 PO
[2022-07-03] MEDS ORDERED: HYDR-3964 PO (09:43)
[2022-07-03] MEDS ORDERED: BENR30AU SQ (09:46)
[2022-07-03 10:26] LABS: BASOPHILS % (AUTO) 0.4 % (0-1); EOSINOPHILS % (AUTO) 0 % (0-6); LYMPHOCYTES # (AUTO) 2.7 X10'3 (1.1-4.8); LYMPHOCYTES % (AUTO) 39.4 % (21-51); MEAN CORPUSCULAR HEMOGLOBIN 29.1 PG (27.0-31.0); MEAN CORPUSCULAR HGB CONC 34.2 g/dL (33.0-36.5); MEAN CORPUSCULAR VOLUME 85.1 FL (78-98); MEAN PLATELET VOLUME 7.3 FL (7.4-10.4); MONOCYTES # (AUTO) 0.7 X10'3 (0-0.9); MONOCYTES % (AUTO) 10.2 % (2-12); NEUTROPHILS # (AUTO) 3.4 X10'3 (1.8-7.7); PRE OP HEMATOCRIT 41.3 % (35.0-45.0); PRE OP HEMOGLOBIN 14.1 g/dL (12.0-16.0); PRE OP PLATELET COUNT 302 X10'3 (140-440); RED BLOOD COUNT 4.85 X10'6 (4.20-5.60); RED CELL DISTRIBUTION WIDTH 14.6 % (11.5-14.5)
[2022-07-03 10:40] LABS: ALBUMIN 3.5 G/DL (3.4-5.0); ALBUMIN/GLOBULIN RATIO 0.8 (1.1-1.5); ALKALINE PHOSPHATASE 91 IU/L (46-116); BLOOD UREA NITROGEN 15 MG/DL (7-18); BUN/CREATININE RATIO 17.2 (6.6-38.0); CHLORIDE 101 MMOL/L (99-107); CREATININE 0.87 MG/DL (0.40-0.90); PRE OP ANION GAP 11 (8-16); PRE OP AST 69 U/L (10-37); PRE OP BILIRUB, TOTAL 0.5 MG/DL (0.0-1.0); PRE OP SODIUM 137 MMOL/L (135-145); TOTAL CARBON DIOXIDE 25.5 MMOL/L (24-32); TOTAL PROTEIN 7.9 G/DL (6.4-8.2); eGFR 64 ML/MIN
[2022-07-03 10:45] LABS: PRE OP GLUCOSE 300 MG/DL (70-104)
[2022-07-03 10:47] LABS: PRE OP ALT 96 U/L (30-65)
[2022-07-03 10:51] LABS: COLOR,URINE YELLOW (Yellow); GLUCOSE, URINE 500 mg/dl (Neg); KETONES,URINE TRACE mg/dl (Neg); LEUKOCYTE ESTERASE ,URINE NEGATIVE (Neg); NITRITES, URINE NEGATIVE (Neg); OCCULT BLOOD,URINE MODERATE (Neg); PROTEIN,URINE NEGATIVE (Neg); UROBILINOGEN,URINE 0.2 E.U/dL (0.2-1.0)
[2022-07-03 10:54] LABS: CLARITY,URINE SLIGHTLY CLOUDY (Clear); UA COLLECTION TYPE CLN CATCH MIDSTREAM
[2022-07-03 10:57] LABS: SQUAMOUS EPITHELIAL CELL,UR MANY /LPF (FEW)
[2022-07-03 11:00] LABS: BACTERIA,URINE FEW /HPF (Neg)
[2022-07-03 11:01] LABS: WBC,URINE 0-4 /HPF (0-4)
[2022-07-03 11:12] LABS: CAL OXALATE CRYSTALS 2+ /HPF (NEGATIVE)
[2022-07-03] MEDS ORDERED: METF-900 PO (11:16)
[2022-07-04] MEDS ORDERED: BENZ-38 PO (20:21)
== END 2022-07-03 23:59 | disposition home or self-care (01) ==
LOC: LAB 09:13 → EDSTATUS 07-23 09:00
PROVIDERS: ATTEND Surgery
DX: Z01.812 Encounter for preprocedural laboratory examination (principal); K40.90 Unilateral inguinal hernia, without obstruction or gangrene, not specified as recurrent
CPT/HCPCS: 36415; 80053; 81001; 85025; 87811

== ENCOUNTER 2022-08-20 07:55 | Observation (INO) | payer MEDICARE, MEDICAID ==
[2022-08-20] VITALS (23 sets, daily range): BP systolic 132–165; BP diastolic 66–117
[~2022-08-20] VITALS: Ht 172.7 cm; Wt 114.2 kg
[~2022-08-20 07:55] MED LIST changes: +BENR30AU SQ; -FAMO40TA58 PO; -HYDR-3965 PO; +METF-900 PO; -METF500T PO; -PRED10TA PO; -UMEC62.5 IH; +ceFAZolin inj. 2,000 MG in dextrose 5%-water 100 ML IV ONE; +famotidine 20mg tablet PO ONE; +ringers solution, lacted 1,000 ML IV SCH
[2022-08-20 09:58] LABS: BASOPHILS % (AUTO) 0.7 % (0-1); EOSINOPHILS % (AUTO) 0 % (0-6); LYMPHOCYTES % (AUTO) 45.8 % (21-51); MEAN CORPUSCULAR HEMOGLOBIN 28.3 PG (27.0-31.0); MEAN CORPUSCULAR HGB CONC 33.2 g/dL (33.0-36.5); MEAN CORPUSCULAR VOLUME 85.4 FL (78-98); MEAN PLATELET VOLUME 8.8 FL (7.4-10.4); MONOCYTES # (AUTO) 0.8 X10'3 (0-0.9); MONOCYTES % (AUTO) 12.6 % (2-12); NEUTROPHILS # (AUTO) 2.7 X10'3 (1.8-7.7); NEUTROPHILS % (AUTO) 40.9 % (42-75); PRE OP HEMATOCRIT 42.7 % (35.0-45.0); PRE OP HEMOGLOBIN 14.2 g/dL (12.0-16.0); PRE OP PLATELET COUNT 282 X10'3 (140-440); RED CELL DISTRIBUTION WIDTH 14.2 % (11.5-14.5)
[2022-08-20 10:21] LABS: ALANINE AMINOTRANSFERASE 70 U/L (12-78); ALBUMIN 3.5 G/DL (3.4-5.0); ALBUMIN/GLOBULIN RATIO 0.8 (1.1-1.5); ALKALINE PHOSPHATASE 78 IU/L (46-116); ANION GAP 12 (8-16); ASPARTATE AMINO TRANSFERASE 57 U/L (10-37); BILIRUBIN,TOTAL 0.9 MG/DL (0.1-1.0); BLOOD UREA NITROGEN 10 MG/DL (7-18); BUN/CREATININE RATIO 11.9 (6.6-38.0); CALCIUM 9.4 MG/DL (8.5-10.1); CHLORIDE 102 MMOL/L (99-107); CREATININE 0.84 MG/DL (0.40-0.90); GLUCOSE 187 MG/DL (70-104); SODIUM 140 MMOL/L (135-145); eGFR 67 ML/MIN
[2022-08-20 10:23] LABS: POTASSIUM 3.9 MMOL/L (3.5-5.1)
[2022-08-20 10:33] LABS: CLARITY,URINE SLIGHTLY CLOUDY (Clear); COLOR,URINE YELLOW (Yellow); GLUCOSE, URINE NEGATIVE (Neg); KETONES,URINE NEGATIVE (Neg); LEUKOCYTE ESTERASE ,URINE NEGATIVE (Neg); NITRITES, URINE NEGATIVE (Neg); OCCULT BLOOD,URINE NEGATIVE (Neg); PH,URINE 5.5 (4.8-8.0); PROTEIN,URINE NEGATIVE (Neg); UROBILINOGEN,URINE 0.2 E.U/dL (0.2-1.0)
[2022-08-20 11:05] LABS: UA COLLECTION TYPE CLN CATCH MIDSTREAM
[2022-08-20 11:06] LABS: BACTERIA,URINE FEW /HPF (Neg); MUCUS STRANDS NONE SEEN /LPF (Neg); RBC,URINE NONE SEEN /HPF (0-2); SQUAMOUS EPITHELIAL CELL,UR MODERATE /LPF (FEW); WBC,URINE 0-4 /HPF (0-4)
[2022-08-20] MEDS ORDERED: ringers solution, lacted 1,000 ML IV SCH (13:45)
[2022-08-20] MEDS ORDERED: ondansetron/PF 4mg/2ml inj IV PRN ×2 (13:45→19:30)
[2022-08-20] MEDS ORDERED: HYDROmorphone/PF 0.2 MG/ML SYRINGE IV PRN ×2 (13:45)
[2022-08-20] MEDS ORDERED: fentaNYL/PF 50MCG/1 ML 2ML syringe ONE ×2 (13:49→14:39)
[2022-08-20] MEDS ORDERED: LIDOcaine 2% (20mg/ml) 5ml vial ONE (13:52)
[2022-08-20] MEDS ORDERED: rocuronium 10mg/ml inj IV ONE (13:52)
[2022-08-20] MEDS ORDERED: propofol inj 20 ML IV ONE (13:52)
[2022-08-20] MEDS ORDERED: BUPIVAcaine/PF 5 mg/ml 10ml ONE (14:26)
[2022-08-20] MEDS ORDERED: acetaminophen 1,000mg/100ml IV 100 ML IV ONE (15:21)
[2022-08-20] MEDS ORDERED: dexamethasone sod phosphate 4mg/ml inj. ONE (15:47)
[2022-08-20] MEDS ORDERED: ondansetron/PF 4mg/2ml inj ONE (15:47)
[2022-08-20] MEDS ORDERED: neostigmine methylsulfate 1 MG/ML 10ml vial ONE (15:47)
[2022-08-20] MEDS ORDERED: glycopyrrolate 0.2mg/ml inj ONE (15:47)
--- NOTE | 2022-08-20 15:48 | NUR ---
RECEIVED PT FROM THE OPERATING ROOM, REPORT GIVEN BY ANESTHESIOLOGIST AND OPERATING ROOM NURSE. ABD INCISION DRY WITH DERMABOND INPLACE
[2022-08-20] MEDS ORDERED: albuterol 2.5 MG/3 ML nebule NEB PRN (18:55)
--- NOTE | 2022-08-20 18:58 | NUR ---
REPORT CALLED TO DONATO ROMAN PT TRANSPORTED BY ROJAS ROMAN TO SURGICAL FLOOR, ALL BELONGINGS WITH PT, IV REMAINS INTACT
--- NOTE | 2022-08-20 19:20 | NUR ---
PATIENT ADMITTED TO ROOM 340B FROM RECOVERY ROOM AFTER INGUINAL HERNIA REPAIR WAS DONE BY DR ADAN. PLACED COMFORTABLE IN BED. VITAL SIGNS TAKEN AND RECORDED.
[2022-08-20] MEDS ORDERED: glucagon, human recombinant 1mg kit SUBCUT PRN (19:30)
[2022-08-20] MEDS ORDERED: MESSAGE TO PHARMACY PO ONE (19:30)
[2022-08-20] MEDS ORDERED: DEXTROSE 15 GM of carb/4 tabs (each vial/BOTTLE has 4 tablets) PO PRN ×2 (19:30)
[2022-08-20] MEDS ORDERED: dextrose 50%-water 50ml dispensing syringe IV PRN ×2 (19:30)
[2022-08-20] MEDS ORDERED: insulin Lispro (HumaLOG) vial - multi-dose SQ SCH (19:30)
[2022-08-20] MEDS ORDERED: normal saline 1000ml 1,000 ML IV SCH (19:30)
[2022-08-20 20:20] LABS: HEMOGLOBIN A1C 8.9 % (4.5-6.2)
[2022-08-20] MEDS: albuterol 2.5 MG/3 ML nebule NEB SCH (21:00)
[2022-08-20] MEDS ORDERED: insulin glargine (Lantus) pen - multi-dose SQ SCH (21:00)
[2022-08-20] MEDS: budesonide 0.5mg/2ml UD nebule IH SCH (21:00)
[2022-08-20] MEDS: HYDROcodone/acetaminophen 10/325mg tab PO PRN (21:24)
[2022-08-21] MEDS: HYDROcodone/acetaminophen 10/325mg tab PO PRN ×3 (02:03→14:41)
[2022-08-21] MEDS: albuterol 2.5 MG/3 ML nebule NEB SCH ×3 (03:31→14:05)
[2022-08-21 05:54] LABS: BASOPHILS % (AUTO) 0.2 % (0-1); EOSINOPHILS % (AUTO) 0 % (0-6); HEMATOCRIT 40.4 % (35.0-45.0); HEMOGLOBIN 13.2 g/dl (12.0-16.0); LYMPHOCYTES # (AUTO) 2.2 X10'3 (1.1-4.8); LYMPHOCYTES % (AUTO) 24.1 % (21-51); MEAN CORPUSCULAR HEMOGLOBIN 27.9 PG (27.0-31.0); MEAN CORPUSCULAR HGB CONC 32.7 g/dL (33.0-36.5); MEAN CORPUSCULAR VOLUME 85.4 FL (78-98); MONOCYTES # (AUTO) 0.8 X10'3 (0-0.9); NEUTROPHILS # (AUTO) 6.1 X10'3 (1.8-7.7); NEUTROPHILS % (AUTO) 66.7 % (42-75); PLATELET COUNT 299 X10'3 (140-440); RED BLOOD COUNT 4.73 X10'6 (4.20-5.60); RED CELL DISTRIBUTION WIDTH 14.2 % (11.5-14.5); WHITE BLOOD COUNT 9.1 X10'3 (4.5-11.0)
[2022-08-21 06:00] VITALS: BP 116/49
--- NOTE | 2022-08-21 06:30 | NUR ---
Problems reprioritized. Patient report given, questions answered & plan of care reviewed with JAMES ROMAN
--- NOTE | 2022-08-21 06:30 | NUR ---
Patient in room [facility]. I have received report from Savi and had the opportunity to ask questions and assume patient care.
[2022-08-21] MEDS: budesonide 0.5mg/2ml UD nebule IH SCH (07:13)
[2022-08-21] MEDS ORDERED: aspirin 325mg tablet, delayed-release (Ecotrin) PO SCH (08:00)
[2022-08-21] MEDS ORDERED: BENRALIZUMAB 30 MG SQ SCH (08:00)
[2022-08-21] MEDS ORDERED: fluticasone nasal spray 16GM bottle NS SCH (08:00)
--- NOTE | 2022-08-21 10:20 | NUR ---
Pt. educated on the importance of receiving insulin for diabetes. Pt. refused insulin this morning but was agreeable to recheck blood sugar at noon at 12:00
[2022-08-21 11:00] VITALS: BP 132/56
--- NOTE | 2022-08-21 13:49 | NUR ---
Pt. re-educated on the importance of receiving insulin for diabetes. Pt. refused insulin this afternoon, stated that she did not want to take the insulin and just wants to go home that way she could take her Metformin. Pt. educated that it is her right to refuse but was again educated on the importance of insulin.
--- NOTE | 2022-08-21 16:35 | NUR ---
IV DC, cannula intact. Pt. DC home via wheelchair to [facility] transport accompanied by staff. DC instructions given to pt., verbalized understanding and had opportunity to ask questions. DC time 1650.
[2022-08-21] MEDS ORDERED: metFORMIN 500mg tablet PO SCH (17:00)
== END 2022-08-21 18:05 | disposition home or self-care (01) ==
LOC: PAS 07:55 → SUR 3N 19:00
PROVIDERS: ADMIT Surgery; ATTEND Surgery
DX: K40.20 Bilateral inguinal hernia, without obstruction or gangrene, not specified as recurrent (principal); E66.9 Obesity, unspecified; E11.9 Type 2 diabetes mellitus without complications; J43.9 Emphysema, unspecified; Z87.891 Personal history of nicotine dependence; Z79.899 Other long term (current) drug therapy
CPT/HCPCS: 36415; 49507; 80053; 81001; 82948; 83036; 85025; 94640; 94760; 96374; C1758; C1781; G0378; J0131; J0690; J1100; J1170; J2405; J2704; J2710; J3010; J3490; J7030; J7060; J7120; A4215; A4615; A4618; J1815